=== PATIENT | male | born 1970 | race Caucasian/White ===

== ENCOUNTER 2016-11-21 18:41 | Emergency (ER) | payer OTHER ==
[~2016-11-21] VITALS: Ht 175.3 cm; Wt 100.0 kg
[2016-11-21 18:44] VITALS: BP 152/77; PULSE 97; RESP 16; TEMP 100.1; O2SAT 98
[2016-11-21 18:55] VITALS: BP 121/76; PULSE 102; RESP 20; TEMP 99; O2SAT 94
[2016-11-21] MEDS ORDERED: SODIUM CHLOR 0.9% 1000 ML INJ 1,000 ML IV SCH (19:10)
[2016-11-21] MEDS ORDERED: SODIUM CHLORIDE 0.9% FLUSH 5 ML FLUSH IVF PRN (19:15)
[2016-11-21] MEDS ORDERED: KETOROLAC TROMETHAMINE 30 MG/ML (IVP) VIAL IVP ONE (19:15)
--- NOTE | 2016-11-21 19:16 | PD ---
HPI Chief Complaint: Cold / Flu Symptoms Time Seen by Provider: 19:12 Travel History International Travel<30 days: No Contact w/Intl Traveler<30days: No Traveled to known affect area: No History of Present Illness HPI 46-year-old male presents the emergency department with 2 day history of high fever, headache, body aches, muscle aches, fatigue, cough, and shortness of breath with exertion. Patient states his cough is nonproductive. Patient had some mild to moderate sore throat. Patient states his fevers been as high the 106 today. Patient denies nausea, vomiting, or diarrhea. He does have decreased appetite. Patient is been taking ibuprofen and Tylenol. Patient states he took Tylenol approximately one hour prior to my exam. States his temperature was 103 prior to taking is Tylenol. Patient states he had his flu shot. Patient is allergic to penicillin. PFSH Past Medical History Tetanus Vaccination: > 5 Years Influenza Vaccination: Yes Family History Family Hypercholesterolemia: Yes Social History Alcohol Use: No Tobacco Use: No Substance Use: No Allergies-Medications (Allergen,Severity, Reaction): Coded Allergies: Penicillin (Verified Allergy, Unknown, 11/21/16) Review of Systems Except as stated in HPI: all other systems reviewed are Neg General / Constitutional: Positive: Fever, Chills Eyes: No: Visual changes HENT: Positive: Headaches, Sore Throat, Rhinitis, Rhinorrhea, Congestion, No: Nosebleed, Neck Stiffness, Neck Pain, Ear Discharge, Earache Cardiovascular: No: Chest Pain or Discomfort Respiratory: Positive: Cough, Shortness of Breath, No: Wheezing, Sneezing, Orthopnea, Hemoptysis, Stridor, Night Sweats, Pleuritic Pain, Other Gastrointestinal: Positive: Loss of Appetite, No: Nausea, Vomiting, Diarrhea, Abdominal Pain Genitourinary: No: Dysuria Musculoskeletal: No: Pain Skin: No Rash Neurologic: No: Weakness Psychiatric: No: Depression Endocrine: No: Polydipsia Hematologic/Lymphatic: No: Easy Bruising Physical Exam Narrative GENERAL: Patient is ill but not septic. SKIN: Warm and mildly diaphoretic. Mild pallor. Normal turgor. HEAD: Atraumatic. Normocephalic. EYES: Pupils equal and round. No scleral icterus. No injection or drainage. ENT: No nasal bleeding, moderate clear nasal discharge. Mucous membranes pink and moist. TMs are clear bilaterally. Pharynx is normal. No sinus tenderness. NECK: Trachea midline. No JVD. Neck is supple and nontender significant lymphadenopathy. CARDIOVASCULAR: Mildly tachycardic rate and normal rhythm. RESPIRATORY: No accessory muscle use. Clear to auscultation. Breath sounds equal bilaterally. GASTROINTESTINAL: Abdomen soft, non-tender, nondistended. Hepatic and splenic margins not palpable. MUSCULOSKELETAL: Extremities without clubbing, cyanosis, or edema. No obvious deformities. NEUROLOGICAL: Awake and alert. No obvious cranial nerve deficits. Motor grossly within normal limits. Five out of 5 muscle strength in the arms and legs. Normal speech. PSYCHIATRIC: Appropriate mood and affect; insight and judgment normal. Data Data Last Documented VS Vital Signs Date Time Temp Pulse Resp B/P Pulse Ox O2 Delivery O2 Flow Rate FiO2 11/21/16 19:15 94 Room Air 11/21/16 18:55 99.0 102 20 121/76 Orders Complete Blood Count With Diff (11/21/16 19:10) Comprehensive Metabolic Panel (11/21/16 19:10) Lactic Acid (11/21/16 19:10) Iv Access Insert/Monitor (11/21/16 19:10) Ecg Monitoring (11/21/16 19:10) Oximetry (11/21/16 19:10) Sodium Chlor 0.9% 1000 Ml Inj (Ns 1000 M (11/21/16 19:10) Sodium Chloride 0.9% Flush (Ns Flush) (11/21/16 19:15) Chest, Single Ap (11/21/16 19:10) Ketorolac Inj (Toradol Inj) (11/21/16 19:15) Influenzae A/B Antigen (11/21/16 19:10) Ceftriaxone Inj (Rocephin Inj) (11/21/16 20:00) Azithromycin (Zithromax) (11/21/16 20:00) Prednisone (Deltasone) (11/21/16 20:00) Albuterol-Ipratropium Neb (Duoneb Neb) (11/21/16 20:00) Labs Laboratory Tests Test 11/21/16 19:15 White Blood Count 10.1 TH/MM3 Red Blood Count 5.75 MIL/MM3 Hemoglobin 16.7 GM/DL Hematocrit 49.5 % Mean Corpuscular Volume 86.2 FL Mean Corpuscular Hemoglobin 29.1 PG Mean Corpuscular Hemoglobin 33.8 % Concent Red Cell Distribution Width 13.1 % Platelet Count 150 TH/MM3 Mean Platelet Volume 9.0 FL Neutrophils (%) (Auto) 76.5 % Lymphocytes (%) (Auto) 8.8 % Monocytes (%) (Auto) 10.9 % Eosinophils (%) (Auto) 2.9 % Basophils (%) (Auto) 0.9 % Neutrophils # (Auto) 7.7 TH/MM3 Lymphocytes # (Auto) 0.9 TH/MM3 Monocytes # (Auto) 1.1 TH/MM3 Eosinophils # (Auto) 0.3 TH/MM3 Basophils # (Auto) 0.1 TH/MM3 CBC Comment DIFF FINAL Differential Comment Sodium Level 140 MEQ/L Potassium Level 3.7 MEQ/L Chloride Level 103 MEQ/L Carbon Dioxide Level 27.9 MEQ/L Anion Gap 9 MEQ/L Blood Urea Nitrogen 19 MG/DL Creatinine 1.29 MG/DL Estimat Glomerular Filtration 60 ML/MIN Rate Random Glucose 107 MG/DL Lactic Acid Level 1.0 mmol/L Calcium Level 8.3 MG/DL Total Bilirubin 0.9 MG/DL Aspartate Amino Transf 48 U/L (AST/SGOT) Alanine Aminotransferase 56 U/L (ALT/SGPT) Alkaline Phosphatase 80 U/L Total Protein 6.9 GM/DL Albumin 3.5 GM/DL [facility] Medical Decision Making Medical Screen Exam Complete: Yes Emergency Medical Condition: Yes Differential Diagnosis Febrile illness. Myalgias. Cough, influenza. Possible pneumonia. Narrative Course Patient is ill but medically stable at time of exam. IV access is obtained and labs are obtained including CBC, CMP and lactic acid. Patient is given 30 mg Toradol IV as well as 1000 mL normal saline bolus. Rapid influenza test is obtained. Chest x-ray is obtained. Chest x-ray shows possible bilateral lower infiltrate per radiologist. Patient is given 500 mg azithromycin by mouth. Patient is given 60 mg prednisone by mouth. Patient is given 1000 mg Rocephin IV. Patient is given a DuoNeb 1. Labs are unremarkable. Rapid influenza is negative. Patient be discharged home on azithromycin 500 mg for 3 more days. Patient is to take prednisone 20 mg twice a day 5 days. Patient is given Robitussin with codeine 1-2 teaspoons every 4-6 hours when necessary cough 120 mL. Patient is given a prescription for Tamiflu 75 mg 1 twice a day. Patient has albuterol nebulizer at home which she can utilize as needed. Patient should rest and push fluids and take Tylenol as needed for fever. Patient should follow-up with his primary care physician or return to emergency Department with worsening symptoms if necessary. Patient should not return to work until he is fever free for 24 hours. Diagnosis Primary Impression: Pneumonia and influenza Patient Instructions: Community Acquired Pneumonia (ED), General Instructions, Influenza (DC), Prednisone (By mouth) Additional Instructions: Chest x-ray shows possible bilateral lower infiltrate per radiologist. Patient is given 500 mg azithromycin by mouth. Patient is given 60 mg prednisone by mouth. Patient is given 1000 mg Rocephin IV. Patient is given a DuoNeb 1. Labs are unremarkable. Rapid influenza is negative. Patient be discharged home on azithromycin 500 mg for 3 more days. Patient is to take prednisone 20 mg twice a day 5 days. Patient is given Robitussin with codeine 1-2 teaspoons every 4-6 hours when necessary cough 120 mL. Patient is given a prescription for Tamiflu 75 mg 1 twice a day. Patient has albuterol nebulizer at home which she can utilize as needed. Patient should rest and push fluids and take Tylenol as needed for fever. Patient should follow-up with his primary care physician or return to emergency Department with worsening symptoms if necessary. Patient should not return to work until he is fever free for 24 hours. Med/Other Pt SpecificInfo: Prescription(s) given Scripts Oseltamivir (Tamiflu)75 Mg Cap75 Mg PO BID #10 CAP Ref 0 Prov:Neelam Harvey MD 11/21/16 Prednisone 20 Mg Tab20 Mg PO BID #10 TAB Prov:Neelam Harvey MD 11/21/16 Guaifenesin-Codeine (Codeine/Guaifenesin 100-10 mg/5Ml)1 Elizabeth Sol10 Ml PO Q4-6H #120 ML Prov:Neelam Harvey MD 11/21/16 Azithromycin 500 Mg Imo507 Mg PO DAILY #3 TAB Ref 0 Prov:Neelam Harvey MD 11/21/16 Disposition: 01 DISCHARGE HOME Condition: Stable Melo Hoyos Nov 21, 2016 19:16
--- NOTE | 2016-11-21 19:46 | RADRPT ---
EXAM DATE/TIME: 11/21/2016 19:22 [facility] COMPARISON: No previous studies available for comparison. INDICATIONS : Fever MEDICAL HISTORY : None. SURGICAL HISTORY : None. ENCOUNTER: Initial ACUITY: 3 days PAIN SCORE: 0/10 LOCATION: chest FINDINGS: A single view of the chest demonstrates elevation right hemidiaphragm. Bibasilar densities. Minimal l inear density right lower lobe. Heart normal in size. The cardiomediastinal contours are unremarkable . Osseous structures are intact. CONCLUSION: 1. Bibasilar densities could be atelectasis or infiltrate. 2. Elevation right hemidiaphragm. 3. Minimal right basal scarring. Owen Catalan MD on November 21, 2016 at 19:43 Board Certified Radiologist. This report was verified electronically.
[2016-11-21 19:55] LABS: AUTOMATED NEUTROPHIL # 7.7 TH/MM3 (1.8-7.7); BASOPHIL # 0.1 TH/MM3 (0-0.2); BASOPHIL % 0.9 % (0.0-2.0); EOSINOPHIL # 0.3 TH/MM3 (0-0.4); EOSINOPHIL % 2.9 % (0.0-4.0); HEMATOCRIT 49.5 % (39.0-51.0); HEMO FLAGS DIFF FINAL; LYMPH % 8.8 % (9.0-44.0); LYMPHOCYTE # 0.9 TH/MM3 (1.0-4.8); MEAN CELL VOLUME 86.2 FL (80.0-100.0); MEAN CORPUSCULAR HEMOGLOBIN 29.1 PG (27.0-34.0); MEAN CORPUSCULAR HGB CONC 33.8 % (32.0-36.0); MONO % 10.9 % (0.0-8.0); NEUT % 76.5 % (16.0-70.0); PLATELET COUNT 150 TH/MM3 (150-450); RED BLOOD COUNT 5.75 MIL/MM3 (4.50-5.90); RED CELL DISTRIBUTION WIDTH 13.1 % (11.6-17.2); WHITE BLOOD COUNT 10.1 TH/MM3 (4.0-11.0)
[2016-11-21] MEDS ORDERED: predniSONE 20 MG TAB PO ONE (20:00)
[2016-11-21] MEDS ORDERED: cefTRIAXone INJ 1,000 MG in SODIUM CHLORIDE 0.9% INJ 100 ML IV ONE (20:00)
[2016-11-21] MEDS ORDERED: RESP: ALBUTEROL 2.5 MG/IPRATROPIUM 0.5 MG NEB (SCH) NEB ONE (20:00)
[2016-11-21] MEDS ORDERED: AZITHROMYCIN 250 MG TAB PO ONE (20:00)
[2016-11-21 20:19] LABS: ALKALINE PHOSPHATASE 80 U/L (45-117); ALT (GPT) 56 U/L (12-78); ANION GAP 9 MEQ/L (5-15); AST (GOT) 48 U/L (15-37); BICARBONATE 27.9 MEQ/L (21.0-32.0); BLOOD UREA NITROGEN 19 MG/DL (7-18); CHLORIDE 103 MEQ/L (98-107); GLOMERULAR FILTRATION RATE 60 ML/MIN (>89); SODIUM (NA) 140 MEQ/L (136-145); TOTAL BILIRUBIN ADULT 0.9 MG/DL (0.2-1.0)
[2016-11-21 20:20] LABS: POTASSIUM 3.7 MEQ/L (3.5-5.1)
[2016-11-21] MEDS ORDERED: OSEL75 PO (20:31)
[2016-11-21] MEDS ORDERED: PRED20 PO (20:31)
[2016-11-21] MEDS ORDERED: GUAI1SOL3 PO (20:31)
[2016-11-21] MEDS ORDERED: AZIT500T2 PO (20:31)
[2016-11-21 20:38] VITALS: BP 142/78; PULSE 108; RESP 18; O2SAT 95
== END 2016-11-21 20:48 | disposition home or self-care (01) ==
LOC: NEPC 18:41
DX: J11.00 Influenza due to unidentified influenza virus with unspecified type of pneumonia (principal); Z88.0 Allergy status to penicillin
CPT/HCPCS: 71010; 80053; 83605; 85025; 87804; 94664; 96361; 96374; 96375; 99283; J0696; J1885; J7030; J7512